=== PATIENT | male | born 1960 | race American Indian/Alaskan Native ===

== ENCOUNTER 2019-11-24 06:36 | Day surgery (SDC) | payer OTHER ==
[~2019-11-24 06:36] MED LIST: ceFAZolin/Water 2 GM/20 ML 2 GM/20 ML SYRINGE IV SCH
[2019-11-24] MEDS ORDERED: ONDANSETRON 4 MG/2 ML INJ IV PRN (09:45)
[2019-11-24] MEDS ORDERED: fentaNYL 100 MCG/2 ML INJ IV PRN (09:45)
--- NOTE | 2019-11-24 09:46 | Anesthesia Day of Surgery ---
Anesthesia Day of Surgery - Day of Surgery Patient Examined: Yes Patient H&P Reviewed: Yes Patient is NPO: Yes
[2019-11-24] MEDS ORDERED: LACTATED RINGERS 1,000 ML IV SCH (10:00)
--- NOTE | 2019-11-24 10:03 | Anesthesia Consultation ---
Anesthesia Consult and Med Hx Date of service: 11/24/19 - Airway Anesthetic Teeth Evaluation: Chipped ROM Head & Neck: Adequate Mental/Hyoid Distance: Adequate Mallampati Class: Class I Intubation Access Assessment: Good - Pre-Operative Health Status ASA Pre-Surgery Classification: ASA2 Proposed Anesthetic Plan: MAC (MAC; GA if needed) - Pulmonary Hx Smoking: Yes (1 PPD X 30 YRS) Hx Sleep Apnea: No (ABISAI PRE SCREEN HIGH RISK.) - Cardiovascular System Hx Hypertension: No - Central Nervous System Hx Back Pain: Yes Hx Psychiatric Problems: Yes (PTSD) - Other Systems Hx Cancer: Yes (Prostate)
[2019-11-24] MEDS ORDERED: BUPIVACAINE/PF (0.5%) 5 MG/1 ML 30 ML VIAL INFILTRATI ONE ×2 (10:37→11:37)
[2019-11-24] MEDS ORDERED: LIDOCAINE (1%) 10 MG/1 ML VIAL 20 ML MDV ONE (10:37)
[2019-11-24] MEDS ORDERED: MIDAZOLAM 2 MG/2 ML INJ ONE (11:16)
[2019-11-24] MEDS ORDERED: propofoL 200 MG/20 ML VIAL IV ONE ×2 (11:16→12:14)
[2019-11-24] MEDS ORDERED: HYDROmorphone 1 MG/1 ML INJ ONE (11:16)
[2019-11-24] MEDS ORDERED: LIDOCAINE (1%) 10 MG/1 ML VIAL 20 ML MDV INFILTRATI ONE (11:37)
[2019-11-24] MEDS ORDERED: SODIUM CHLORIDE 0.9% IRR 1,000 ML BOTTLE IR ONE (11:37)
[2019-11-24] MEDS ORDERED: LIDOCAINE MPF (2%) 20 MG/1 ML VIAL 5 ML ONE (12:29)
--- NOTE | 2019-11-24 12:40 | Short Stay Summary ---
Short Stay Documentation Date of service: 11/24/19 - History Principal diagnosis: soft tissue mass right upper arm H&P: obtained from office - Allergies and Medications Current Medications: Allergies No Known Allergies Allergy (Verified 11/11/19 10:12) Home Medications Medication Instructions Recorded Confirmed Last Taken Type No Known Home Medications [No 11/11/19 11/24/19 Unknown History Reported Home Medications] Active Medications Fentanyl (Sublimaze) 50 mcg IV Q5MIN PRN PRN Reason: Pain , Severe (7-10) Stop: 11/24/19 23:00 Cefazolin Sodium (Ancef/Sterile Water 2 Gm/20 Ml) 2 gm in 20 mls @ 40 mls/hr IV PREOP LIZZETTE; Protocol Stop: 11/24/19 23:59 Lactated Ringer's (Lactated Ringers) 1,000 mls @ 125 mls/hr IV DIRECT LIZZETTE Last Admin: 11/24/19 10:15 Dose: 125 mls/hr Documented by: Ondansetron HCl (Zofran) 4 mg IV ONCE PRN PRN Reason: Nausea And Vomiting Stop: 11/24/19 23:00 - Brief post op/procedure progress note Date of procedure: 11/24/19 Pre-op diagnosis: right upper arm soft tissue mass Post-op diagnosis: same Procedure: excision of soft tissue mass right upper arm Anesthesia: MAC, local Findings: 14 cm lobulated soft tissue mass extending to the muscle and fascia Suture markings: 1. short superior 2. long (one string) lateral 3. long (two strings) cephalad (superior) Surgeon: CHERRIE FERRARI Estimated blood loss: minimal Pathology: list (soft tissue mass right upper arm) Condition: stable - Hospital course Hospital course: Pt observed in PACU and discharged to home in stable condition - Disposition Condition at discharge: Good Disposition: DC-01 TO HOME OR SELFCARE Short Stay Discharge Plan Activity: no restrictions Diet: regular Wound: per your surgeon's advice Additional Instructions: PLEASE SEE PRINTED DISCHARGE INSTRUCTIONS Follow up with: [facility] [Primary Care Provider] - 7 Days CHERRIE FERRARI DO [Staff Physician] - 10 Days Prescriptions: HYDROcodone/APAP 5-325 [[place] 5/325] 1 each PO Q4HR PRN #20 tablet PRN Reason: Pain
[2019-11-24 14:02] VITALS: BP 129/73
--- NOTE | 2019-11-24 17:23 | Post Anesthesia Evaluation ---
- Post Anesthesia Evaluation Patient Participated: Yes Airway Patent: Yes Stable Respiratory Function: Yes Nausea/Vomiting: No Temp > 96.8F: Yes Pain Manageable: Yes Adequeate Hydration: Yes Anesthesia Complications: No Block Receding Appropriately: Not Applicable Patient on Ventilator: No
--- NOTE | 2019-11-25 08:36 | Operative Report ---
Operative Report Operative Report: Date of procedure: 11/24/19 Pre-op diagnosis: right upper arm soft tissue mass Post-op diagnosis: same Procedure: excision of soft tissue mass right upper arm Anesthesia: MAC, local Findings: 14 cm lobulated soft tissue mass extending to the muscle and fascia Suture markings: 1. short superior 2. long (one string) lateral 3. long (two strings) cephalad Surgeon: CHERRIE FERRARI Estimated blood loss: minimal Pathology: list (soft tissue mass right upper arm) Condition: stable - Hospital course Hospital course: Pt observed in PACU and discharged to home in stable condition HPI and indication: Patient is a 58-year-old male who is referred to the surgery clinic by the [facility] for evaluation of a large soft tissue mass on his right upper extremity. The mass is been present for some time and due to the size was be coming uncomfortable. It was recommended that the mass be excised. I discussed all risks, benefits, alternatives to surgery with the patient and questions were answered. Consent obtained for excision of soft tissue mass of right upper arm. Procedure in detail: Patient was identified in the preoperative area, taken back to the operating room and placed on the operating room table in prone position. After anesthesia was induced the right arm was prepped and draped in usual sterile fashion and a timeout performed. Local anesthetic was infiltrated into the skin and subcutaneous tissue at the intended incision site. A 5 cm vertical incision was made using a 15 blade. Dissection was carried down through skin and subcutaneous tissue using Bovie electrocautery until the mass was identified . The mass was meticulously dissected from the surrounding tissue. There were chronic, dense adhesions to the skin and surrounding tissues, underlying muscle and fascia. The mass was multilobulated. Due to the depth of the mass as well as the dense adhesions, the dissection was prolonged. Great care was taken to avoid injury to underlying structures. Once the mass was completely dissected free from the surrounding structures it was gently dissected off of the underlying fascia using a combination of blunt dissection and electrocautery. The mass was then removed from the wound and marked with suture. A short suture was placed in the superior/superficial margin. 1 long suture was placed on the lateral margin. 2 long suture was placed in the cephalad margin of the mass. The mass measured approximately 4 cm and was passed off the table as a specimen. The wound was then copiously irrigated with saline. Hemostasis was carefully achieved using electrocautery and pressure. No bleeding was seen prior to closure of the wound. Prashanth powder was sprayed directly into the wound to further ensure hemostasis. The wound was then closed in a layered fashion. The deep dermal layer was closed with 3-0 Vicryl interrupted sutures. The skin was closed with 4-0 Monocryl subcuticular stitches and skin glue. Once the skin glue was dry, a 4 x 4 gauze was placed over the incision and the upper arm wrapped with an Bryan wrap for mild compression. At the end of the case, all sponge, instrument, sharp counts were correct x2. The patient was awoken from anesthesia, transferred to the stretcher, taken to PACU in stable condition.
== END 2019-11-24 06:37 | disposition home or self-care (01) ==
LOC: OR 06:36
PROVIDERS: ATTEND Surgery
DX: M79.89 Other specified soft tissue disorders (principal); D17.21 Benign lipomatous neoplasm of skin and subcutaneous tissue of right arm; R22.31 Localized swelling, mass and lump, right upper limb; F17.210 Nicotine dependence, cigarettes, uncomplicated; Z79.899 Other long term (current) drug therapy; Z98.890 Other specified postprocedural states; Z85.46 Personal history of malignant neoplasm of prostate
CPT/HCPCS: 24071; 88304; J0690; J1170; J2250; J2704; J3010; J7120; 88307